=== PATIENT | male | born 1960 | race Caucasian/White ===

== ENCOUNTER 2019-11-22 03:15 | Inpatient (IN) | payer MEDICAID ==
[~2019-11-22] VITALS: Ht 157.5 cm; Wt 99.8 kg
--- NOTE | ~2019-11-22 | EMS ---
[place] [address] EMS Patient Care Report Name: MIKAEL WHITAKER Room: [facility]#: [id number] Admission: Attend Phys: Discharge: Date of : 58 Report #: [id number] THIS REPORT FOR: //name// Report Transmitted: 11/22/2019 03:42 EMS Care Summary [facility] [employer] [facility] Incident [id number] @ 11/22/2019 02:34 Incident Location [address] [place] [address] Patient MIKAEL WHITAKER Male, 58 Years 1960 Patient Address [address] [place] [address] Patient History Asthma,Seizures, Patient Allergies No known allergies, Patient Medications Metoprolol, Carvedilol, Atorvastatin, Clopidogrel, Nitroglycerin, Albuterol, Lisinopril, Quetiapine, Aspirin, Chief Complaint SOB Disposition Transported No Lights/Gallion Dispatch Reason Breathing Problem Transported To [facility] Narrative Dispatched for 58y/o male chest pain. Upon arrival pt. was lying on the floor, anxious, and speaking 1-2 words at a time. Pt. would not answer questions and would not voice a complaint. VS were obtained, O2 was administered, and 12 [place] [address] EMS Patient Care Report Name: MIKAEL WHITAKER Room: [facility]#: [id number] Admission: Attend Phys: Discharge: Date of : 58 Report #: [id number] EKG showed sinus rhythm. Pt. would not give history or complaint and family was poor historian. Pt. med list was found and showed Albuterol for asthma. Pt. was then moved to ambulance and anxiety decreased. Better assessment was done and breath sounds were wheezes throughout. Duoneb was administered with some improvement and then Albuterol was administered with continued improvement. Upon arrival to hospital pt. was cooperative and speaking more complete sentences. Pt. was transported to [place] for emergency and respiratory services. Initial Vitals @03:10P: 76,R: 24,BP: 130/70, @02:55P: 80,R: 24,BP: 130/74,SpO2: 100, @02:41P: 80,R: 30,BP: 144/80,GCS: 15,Temp: 97.9F,Glucose: 107,SpO2: 100,Revised Trauma: 11,OH Suspected: false Assessments @02:42MENTAL:Person Oriented,Time Oriented,Place Oriented,Event Oriented,SKIN:HEENT:Head/Face: No Abnormalities,Neck/Airway: No Abnormalities,LUNG SOUNDS:General: No Abnormalities,ABDOMEN:General: No Abnormalities,PELVIS//GI:EXTREMITIES:Left Arm: No Abnormalities,Right Arm: No Abnormalities,Left Leg: No Abnormalities,Right Leg: No Abnormalities,PULSE:Radial: 2+ Normal,NEURO:No Abnormalities, Impression Respiratory disorder Procedures @02:45Oxygen FlowRate: 4 Device: Nasal Cannula (NC) Response: UnchangedSucceeded@02:50Oxygen FlowRate: 8 Device: Nebulizer Response: ImprovedSucceeded@02:54Saline Lock 10cc (20 ga) Site: Hand-LeftResponse: UnchangedSucceeded@03:00Albuterol - 2.5 Milligrams (mg) - NebulizedResponse: Improved@02:50Duoneb - 3 Milligrams (mg) - Non-Rebreather MaskResponse: Improved Timeline 02:30,Call Received 02:34,Dispatched 02:34,En Route 02:36,Initial Responder On Scene 02:36,On Scene 02:40,At Patient 02:41,BP: 144/80 M,PULSE: 80,RR: 30 R,SPO2: 100 Ox,ETCO2: ,B,PAIN: ,GCS: 15, 02:45,Oxygen FlowRate: 4 Device: Nasal Cannula (NC) Response: UnchangedSucceeded, 02:49,[place] [address] EMS Patient Care Report Name: MIKAEL WHITAKER Room: [facility].#: [id number] Admission: Attend Phys: Discharge: Date of : 58 Report #: [id number] 02:50,Duoneb - 3 Milligrams (mg) - Non-Rebreather Mask,Response: Improved 02:50,Oxygen FlowRate: 8 Device: Nebulizer Response: ImprovedSucceeded, 02:54,Saline Lock 10cc 20 ga Site: Hand-Left,Response: UnchangedSucceeded, 02:55,BP: 130/74 M,PULSE: 80,RR: 24 R,SPO2: 100 Ox,ETCO2: ,BG: ,PAIN: ,GCS: , 03:00,Albuterol - 2.5 Milligrams (mg) - Nebulized,Response: Improved 03:10,BP: 130/70 M,PULSE: 76,RR: 24 R,SPO2: Ox,ETCO2: ,BG: ,PAIN: ,GCS: , 03:11,At Destination 03:15,Transfer Patient 03:44,Call Closed 03:44,In District Disclaimer v1.1 Copyright 2020 [employer] This EMS Care Summary contains data elements from the applicable legal record (which may be displayed differently). It is designed to provide pertinent information for the following purposes: continuity of care, clinical quality, and state data reporting. The complete legal record is available to ED staff and administrators of the receiving hospital in [employer] Patient Tracker. All data is provided "as is."
[2019-11-22 03:19] VITALS: BP 157/99
[2019-11-22] MEDS ORDERED: ASPIRIN (03:34)
[2019-11-22] MEDS ORDERED: ALBUTEROL (03:34)
[2019-11-22] MEDS ORDERED: ATORVASTATIN (03:35)
[2019-11-22] MEDS ORDERED: CLOPIDOGREL (03:36)
[2019-11-22] MEDS ORDERED: CARVEDILOL (03:36)
[2019-11-22] MEDS ORDERED: METOPROLOL (03:37)
[2019-11-22] MEDS ORDERED: LISINOPRIL (03:37)
[2019-11-22] MEDS ORDERED: QUETIAPINE (03:38)
[2019-11-22] MEDS ORDERED: NITROGLYCERIN (03:38)
[2019-11-22 03:55] LABS: ABSOLUTE BASOPHILS 0.1 thou/uL (0.0-0.2); ABSOLUTE EOSINOPHILS 0.5 thou/uL (0.0-0.7); ABSOLUTE LYMPHOCYTES 5.8 thou/uL (0.8-5.3); ABSOLUTE MONOCYTES 1.3 thou/uL (0.0-1.2); ABSOLUTE NEUTROPHILS 4.3 thou/uL (1.6-8.1); BASOPHILS 0.7 %; EOSINOPHILS 4.3 %; HEMOGLOBIN 12.6 gm/dL (14.0-18.0); LYMPHOCYTES 48.2 %; MCH 29.2 pg (26.0-34.0); MCHC 33.2 g/dL (28.0-37.0); MONOCYTES 10.7 %; NUCLEATED RBCS 0 /100WBC; PLATELET COUNT* 350 thou/uL (150-400); POLYS 36.1 %; RBC 4.31 mil/uL (4.50-6.00); RDW-CV 14.1 % (10.5-14.5)
[2019-11-22 04:06] LABS: CALCIUM 8.8 mg/dL (8.5-10.1); CREATININE 1.4 mg/dL (0.6-1.3); POTASSIUM 3.7 mmol/L (3.5-5.1)
[2019-11-22 04:18] LABS: ALBUMIN 3.6 g/dL (3.4-5.0); TOTAL BILIRUBIN 0.2 mg/dL (<0.1-1.0)
[2019-11-22 08:00] VITALS: BP 123/56
[2019-11-22] MEDS ORDERED: CARVEDILOL25 MG PO (11:11)
[2019-11-22] MEDS ORDERED: PLAVIX 75 MG TA75 M1 PO (11:56)
[2019-11-22] MEDS ORDERED: CARVEDILOL12.5 MG PO ×2 (11:56→12:13)
[2019-11-22] MEDS ORDERED: PLAVIX 75 MG TA75 MG PO (12:14)
[2019-11-22] MEDS ORDERED: SEROQUEL 25 MG25 MG PO (12:15)
[2019-11-22] MEDS ORDERED: LIPITOR80 MG PO (12:16)
[2019-11-22] MEDS ORDERED: LISINOPRIL-HCT1 EAC1 PO (12:16)
[2019-11-22] MEDS ORDERED: BIDIL TABLET1 EACH PO (12:17)
[2019-11-22 12:30] VITALS: BP 110/58
[2019-11-22 14:31] LABS: ALBUMIN 3.8 g/dL (3.4-5.0); CALCIUM 9.1 mg/dL (8.5-10.1); CREATININE 1.3 mg/dL (0.6-1.3); TOTAL BILIRUBIN 0.2 mg/dL (<0.1-1.0); TOTAL PROTEIN 7.6 g/dL (6.4-8.2)
[2019-11-22 15:24] LABS: BE -4.7 mmol/L (-2 to +3); PCO2 33.9 mmHg (35.0-45.0); PO2 84.3 mmHg (75.0-100.0)
[2019-11-22 15:55] VITALS: BP 100/48
[2019-11-22 16:00] VITALS: BP 137/71
--- NOTE | 2019-11-22 17:48 | EKG ---
[place] [address] ELECTROCARDIOGRAM REPORT Name: MIKAEL WHITAKER Room: [address] ADM IN .R.#: [id number] Admission: 11/22/19 Attend Phys: Zoraida Pedraza, Discharge: Date of : 58 Date of Service: 11/22/19 0321 Report #: [id number] THIS REPORT FOR: //name// [facility] ED Test Date: 2019-11-22 Test Time: 03:21:20 Pat Name: MIKAEL WHITAKER Department: Room: [facility] Gender: M Data Assistant: VALERIA : 1960 Requested By: Omi Esposito Order Number: [id number] MD: Benson Valero Measurements Intervals [place] Rate: 73 P: 53 DE: 149 QRS: 52 QRSD: 106 T: 107 QT: 388 QTc: 428 Interpretive Statements Sinus rhythm Nonspecific repol abnormality, lateral leads No previous ECG available for comparison Electronically Signed On 11-22-2019 17:48:24 CDT by Benson Valero [email or web address] <ELECTRONICALLY SIGNED> By: Benson Valero MD, FACC 11/22/19 1748 032 032 Benson Valero MD, FACC /EPI
--- NOTE | 2019-11-22 17:49 | EKG ---
[place] [address] ELECTROCARDIOGRAM REPORT Name: JULIANNEMIKAEL R Room: [address] ADM IN .R.#: [id number] Admission: 11/22/19 Attend Phys: Zoraida Pedraza, Discharge: Date of : 58 Date of Service: 11/22/19 0747 Report #: [id number] THIS REPORT FOR: //name// [facility] ED Test Date: 2019-11-22 Test Time: 07:47:13 Pat Name: MIKAEL WHITAKER Department: Room: [facility] Gender: M Chief Internal Auditor: JOHN : 1960 Requested By: Omi Esposito Order Number: [id number] MD: Benson Valero Measurements Intervals [place] Rate: 97 P: 66 [place]: 170 QRS: 40 QRSD: 104 T: 72 QT: 373 QTc: 474 Interpretive Statements Sinus rhythm Borderline T wave abnormalities Artifact in lead(s) II,III,aVF,V3,V4 and baseline wander in lead(s) I,V2,V3,V4,V5,V6 Compared to ECG 11/22/2019 03:21:20 T-wave abnormality now present Early repolarization no longer present Electronically Signed On 11-22-2019 17:48:45 CDT by Benson Valero [email or web address] <ELECTRONICALLY SIGNED> By: Benson Valero MD, FACC 11/22/19 1748 6 6 Benson Valero MD, FAC /EPI
--- NOTE | 2019-11-22 17:49 | EKG ---
[place] [address] ELECTROCARDIOGRAM REPORT Name: JULIANNEMIKAEL R Room: [address] ADM IN ..#: [id number] Admission: 11/22/19 Attend Phys: Zoraida Pedraza, Discharge: Date of : 58 Date of Service: 11/22/19 0751 Report #: [id number] THIS REPORT FOR: //name// [facility] ED Test Date: 2019-11-22 Test Time: 07:51:42 Pat Name: MIKAEL WHITAKER Department: Room: [facility] Gender: M Melter Supervisor Oxygen Furnace: JOHN : 1960 Requested By: Alberto Callaway Order Number: [id number] MD: Benson Valero Measurements Intervals [place] Rate: 96 P: 62 SC: 183 QRS: 36 QRSD: 104 T: 122 QT: 375 QTc: 474 Interpretive Statements Sinus rhythm Borderline repolarization abnormality Artifact in lead(s) II,III,aVR,aVL,aVF,V4,V6 and baseline wander in lead(s) V6 Compared to ECG 11/22/2019 07:47:13 T-wave abnormality no longer present Electronically Signed On 11-22-2019 17:48:49 CDT by Benson Valero [email or web address] <ELECTRONICALLY SIGNED> By: Benson Valero MD, FACC 11/22/19 1748 0 075 Benson Valero MD, FACC /EPI
[2019-11-22 20:00] VITALS: BP 191/105
[2019-11-23 00:12] VITALS: BP 155/83
[2019-11-23 01:00] VITALS: BP 158/83
[2019-11-23 07:58] VITALS: BP 129/92
[2019-11-23 12:00] VITALS: BP 116/75
[2019-11-23 16:00] VITALS: BP 134/75
[2019-11-23 20:00] VITALS: BP 123/64
[2019-11-24] VITALS: BP 125/89
[2019-11-24 04:00] VITALS: BP 144/64
[2019-11-24 04:13] LABS: ABSOLUTE LYMPHOCYTES 4.7 thou/uL (0.8-5.3); ABSOLUTE MONOCYTES 1.2 thou/uL (0.0-1.2); ABSOLUTE NEUTROPHILS 10.2 thou/uL (1.6-8.1); BASOPHILS 0.2 %; EOSINOPHILS 0.1 %; HEMATOCRIT 37.5 % (42.0-52.0); HEMOGLOBIN 12.2 gm/dL (14.0-18.0); LYMPHOCYTES 29.1 %; MCH 29.2 pg (26.0-34.0); MCHC 32.5 g/dL (28.0-37.0); MCV 89.7 fL (80.0-100.0); MONOCYTES 7.3 %; NUCLEATED RBCS 0 /100WBC; PLATELET COUNT* 358 thou/uL (150-400); POLYS 63.3 %; RBC 4.18 mil/uL (4.50-6.00); RDW-CV 14.5 % (10.5-14.5); WBC 16.1 thou/uL (4.0-11.0)
[2019-11-24 04:38] LABS: ALBUMIN 3.5 g/dL (3.4-5.0); CALCIUM 8.8 mg/dL (8.5-10.1); CREATININE 1.2 mg/dL (0.6-1.3); POTASSIUM 4.1 mmol/L (3.5-5.1); TOTAL BILIRUBIN 0.2 mg/dL (<0.1-1.0); TOTAL PROTEIN 7.1 g/dL (6.4-8.2)
[2019-11-24 08:00] VITALS: BP 158/93
[2019-11-24] MEDS ORDERED: LEVOFLOXACIN500 MG PO (09:28)
[2019-11-24] MEDS ORDERED: PREDNISONE 10 M10 MG PO (09:28)
[2019-11-24 12:17] VITALS: BP 144/64
[2019-11-24 14:51] VITALS: BP 144/64
== END 2019-11-24 14:52 | disposition home or self-care (01) | DRG 177 ==
LOC: M.ERS 03:15 → M.TBA-ER 04:46 → M.3W 16:00
PROVIDERS: Emergency Medicine Emergency Medical Services; Internal Medicine; ADMIT Internal Medicine; ATTEND Internal Medicine
DX: J15.6 Pneumonia due to other Gram-negative bacteria (principal); J96.21 Acute and chronic respiratory failure with hypoxia; J44.0 Chronic obstructive pulmonary disease with (acute) lower respiratory infection; F12.90 Cannabis use, unspecified, uncomplicated; J45.909 Unspecified asthma, uncomplicated; J20.9 Acute bronchitis, unspecified; D64.9 Anemia, unspecified; I10 Essential (primary) hypertension; Z20.828 Contact with and (suspected) exposure to other viral communicable diseases; Z88.0 Allergy status to penicillin; Z91.041 Radiographic dye allergy status; Z95.5 Presence of coronary angioplasty implant and graft; Z82.49 Family history of ischemic heart disease and other diseases of the circulatory system; Z79.899 Other long term (current) drug therapy

== ENCOUNTER 2020-01-20 20:32 | Inpatient (IN) | payer MEDICAID ==
[~2020-01-20] VITALS: Ht 157.5 cm; Wt 76.2 kg
--- NOTE | ~2020-01-20 | CON ---
[address] [address] CONSULTATION Name: MIKAEL WHITAKER Gricel Room: [place] [address] ADM IN Lucie.Gricel.#: [id number] Admission: 01/20/20 Attend Phys: Lucie Pitt Discharge: Date of : 58 Report #: [id number] THIS REPORT FOR: cc: Crys Daniels Ahmad W. DO ~ Ryan Cee MD [facility] CARDIOLOGY CONSULTATION HISTORY OF PRESENT ILLNESS: I was asked by the ER doctor and Dr. Flaherty of the hospitalist service to see this 59-year-old white male in cardiology consultation for evaluation and treatment of chest pain. This man has a history of coronary artery disease. He has had 3 stents. His last one was in March and was told there was residual disease. His stents were done in [place], [place] and I believe the last one was in [place]. He does not have a airplane mechanic here in [place]. He apparently sees Dr. Crys Daniels for his primary care. This man had the onset of chest pain last night was around 1900. He said the pain was like his previous chest pain. It was an 8 or 9 on a scale of 10. He describes it as being on the left side of his chest. It was a sharp, knife-like pain. He did have pain in his right forearm with it. He had associated nausea and vomiting and shortness of breath. The pain lasted about an hour altogether. He did take a nitroglycerin initially, which relieved the pain, but when the pain went back, he decided to come to the Emergency Room. The pain was constant after the resumed following the initial nitroglycerin. So in additionally his past medical history includes besides his coronary heart disease and coronary stents, hypertension and hypercholesterolemia. He apparently does not have diabetes. He does smoke, apparently. MEDICATIONS: Include p.r.n. nitroglycerin, metoprolol 25 mg daily that is Toprol-XL, he takes an albuterol inhaler p.r.n. He is on carvedilol 12.5 mg b.i.d., Plavix 75 mg daily. He is supposed to be taking aspirin, but he has not been taking it. He takes quinapril 25 mg 3 times a day, atorvastatin 80 mg daily and BiDil 30 mg tablets b.i.d. He tells me he has not ever been told he has heart failure. ALLERGIES: HE IS ALLERGIC TO CONTRAST DYE AND TO PENICILLIN. LABORATORY DATA: His troponins have been negative. I believe he only had 1 troponin. His BNP was 43. Urine drug screen was positive for opiates. Chest x-ray was unremarkable. His EKG showed normal sinus rhythm, heart rate was 89. There is a probable old anteroseptal GA versus counterclockwise rotation. There were minimal nonspecific ST changes and there was probable LAE. SOCIAL HISTORY: Does not drink. He does smoke, does not use illegal drugs. REVIEW OF SYSTEMS: Essentially as per the past medical history some [address] [place] [address] CONSULTATION Name: MIKAEL WHITAKER Gricel Room: [facility] IN [facility]#: [id number] Admission: 01/20/20 Attend Phys: Lucie Pitt Discharge: Date of : 58 Report #: [id number] different complaints in 14 different system categories were reviewed. Please see review of systems form for details and negative in review of systems. FAMILY HISTORY: Unremarkable. PHYSICAL EXAMINATION: GENERAL: He presents as well-developed, well-nourished white male in no acute distress. VITAL SIGNS: His pulse was 80 and regular, blood pressure is 140/85, respirations were 20 and regular, O2 sat was 97, temperature is 36.2. HEENT: His head was atraumatic. Eyes clear. NECK: Supple. There is no jugular venous distention or hepatojugular reflux. Thyroid is not enlarged. There is no adenopathy. SKIN: Warm and dry. Mucous membranes are moist. LUNGS: Clear to auscultation and percussion. HEART: Revealed normal first and second heart sound. There is soft S4. There is no S3. There are no murmurs, rubs, thrills, heaves or gallops. PMI is not displaced. ABDOMEN: Soft, flat and nontender. No palpable masses, no organomegaly. EXTREMITIES: Reveal no cyanosis, clubbing or edema. NEUROLOGIC: The patient mentated normally, talked normally, and moved all extremities normally. IMPRESSION: 1. Chest pain, probably an acute coronary syndrome. 2. Coronary artery disease. 3. Status post coronary stents. 4. Essential hypertension. 5. Hypercholesterolemia. 6. Smoking. RECOMMENDATION: I recommend that he have cardiac catheterization and coronary angiography tomorrow. Additionally, he should have an echo. Thank you very much for asking me to see this patient. I would aggressively treat him with beta blockers and nitrates as well as aspirin and Plavix. If there are any questions, please feel free to contact me. By: [id number]. Ramana Cee MD, FACC /nt
[~2020-01-20 20:32] MED LIST: ALBUTEROL; ASPIRIN; ATORVASTATIN; BIDIL TABLET1 EACH PO; CARVEDILOL; CARVEDILOL12.5 MG PO; CARVEDILOL25 MG PO; CLOPIDOGREL; LEVOFLOXACIN500 MG PO; LIPITOR80 MG PO; LISINOPRIL; LISINOPRIL-HCT1 EAC1 PO; METOPROLOL; NITROGLYCERIN; PLAVIX 75 MG TA75 M1 PO; PLAVIX 75 MG TA75 MG PO; PREDNISONE 10 M10 MG PO; QUETIAPINE; SEROQUEL 25 MG25 MG PO
[2020-01-20 20:34] VITALS: BP 154/89
[2020-01-20] MEDS ORDERED: NITROSTAT0.4 M1 SUBLING (20:44)
[2020-01-20] MEDS ORDERED: TOPROL XL25 MG PO (20:45)
[2020-01-20] MEDS ORDERED: PROAIR HFA8.5 GM INH (20:46)
[2020-01-20 21:17] LABS: ABSOLUTE BASOPHILS 0.1 thou/uL (0.0-0.2); ABSOLUTE EOSINOPHILS 0.2 thou/uL (0.0-0.7); ABSOLUTE LYMPHOCYTES 3.3 thou/uL (0.8-5.3); ABSOLUTE MONOCYTES 0.9 thou/uL (0.0-1.2); ABSOLUTE NEUTROPHILS 8.5 thou/uL (1.6-8.1); BASOPHILS 0.8 %; EOSINOPHILS 1.4 %; HEMATOCRIT 42.7 % (42.0-52.0); HEMOGLOBIN 14.3 gm/dL (14.0-18.0); LYMPHOCYTES 25.4 %; MCH 29.7 pg (26.0-34.0); MCHC 33.4 g/dL (28.0-37.0); MCV 88.8 fL (80.0-100.0); MONOCYTES 6.6 %; NUCLEATED RBCS 0 /100WBC; PLATELET COUNT* 343 thou/uL (150-400); POLYS 65.8 %; RBC 4.81 mil/uL (4.50-6.00); RDW-CV 15.3 % (10.5-14.5)
[2020-01-20 21:26] LABS: CALCIUM 9.5 mg/dL (8.5-10.1); CREATININE 1.3 mg/dL (0.6-1.3); POTASSIUM 3.5 mmol/L (3.5-5.1)
[2020-01-20 21:28] LABS: APTT 23.1 Seconds (25.0-31.3); PROTIME 10.3 Seconds (9.20-11.50)
[2020-01-20 21:38] LABS: TOTAL BILIRUBIN 0.5 mg/dL (<0.1-1.0); TOTAL PROTEIN 7.6 g/dL (6.4-8.2)
[2020-01-20 22:28] LABS: URINE BILIRUBIN NEGATIVE (Negative); URINE BLOOD NEGATIVE (Negative); URINE CLARITY CLEAR; URINE COLOR YELLOW; URINE GLUCOSE-RANDOM 1+ (Negative); URINE KETONES 1+ (Negative); URINE LEUKOCYTES-REFLEX NEGATIVE (Negative); URINE NITRITE-REFLEX NEGATIVE (Negative); URINE PROTEIN NEGATIVE (Negative); URINE SPECIFIC GRAVITY >= 1.030 (1.005-1.030); URINE UROBILINOGEN 0.2 E.U./dl (0.2-1.0)
[2020-01-20 22:37] LABS: AMP/METHAMP Negative (Negative); BARBITURATES Negative (Negative); BENZODIAZEPINES Negative (Negative); COCAINE Negative (Negative); METHADONE Negative (Negative); OPIATES POSITIVE (Negative); PCP Negative (Negative); THC Negative (Negative)
[2020-01-21] VITALS (8 sets, daily range): BP systolic 102–152; BP diastolic 51–90
--- NOTE | 2020-01-21 14:07 | EKG ---
[place] [address] ELECTROCARDIOGRAM REPORT Name: MIKAEL WHITAKER Room: [place] [address] ADM IN [facility].#: [id number] Admission: 01/20/20 Attend Phys: Daniela Flaherty Discharge: Date of : 58 Date of Service: 01/20/202035 Report #: [id number] THIS REPORT FOR: //name// [facility] ED Test Date: 2020-01-20 Test Time: 20:36:07 Pat Name: MIKAEL WHITAKER Department: Room: [facility] Gender: M Hide Tanner: JOHN : 1960 Requested By: Debra Rodgers Order Number: [id number] MD: Ramana Cee Measurements Intervals [place] Rate: 89 P: 70 [place]: 152 QRS: 44 QRSD: 106 T: 89 QT: 377 QTc: 459 Interpretive Statements Sinus rhythm Probable left atrial enlargement Minimal ST depression, lateral leads Compared to ECG 11/22/2019 07:51:42 ST (T wave) deviation now present Electronically Signed On 01-21-2020 14:07:43 PINION SORTER by Ramana Cee [email or web address] <ELECTRONICALLY SIGNED> By: Ryan Cee MD, FAC 01/21/20 1407 35 35 Ryan Cee MD, FAC /EPI
[2020-01-21] MEDS ORDERED: PREDNISONE 5 MG5 M1 PO (21:06)
[2020-01-21] MEDS ORDERED: LISINOPRIL20 MG PO (21:06)
[2020-01-21] MEDS ORDERED: ASA81BEC PO (21:06)
[2020-01-22] VITALS (13 sets, daily range): BP systolic 106–159; BP diastolic 62–99
[2020-01-22 08:58] LABS: CHOLESTEROL 190 mg/dL (<200); HDL CHOLESTEROL 40 mg/dL (>40); LDL CHOLESTEROL 131 mg/dL (<100); SERUM ASSESSMENT Clear; TC:HDL 4.8 Ratio (Not establshd); TRIGLYCERIDE 98 mg/dL (<150); VLDL 20 mg/dL (<40)
--- NOTE | 2020-01-22 15:17 | EKG ---
[place] [address] ELECTROCARDIOGRAM REPORT Name: MIKAEL WHITAKER Room: [address] ADM IN M.R.#: [id number] Admission: 01/20/20 Attend Phys: Daniela Flaherty Discharge: Date of : 58 Date of Service: 01/22/20 1345 Report #: [id number] THIS REPORT FOR: //name// [facility] Test Date: 2020-01-22 Test Time: 13:45:46 Pat Name: MIKAEL WHITAKER Department: Room: [address] Gender: M Chief Engineering Division: : 1960 Requested By: Jeronimo Powell Order Number: [id number] Todd MD: Jeronimo Powell Measurements Intervals [place] Rate: 76 P: 69 [place]: 164 QRS: 16 QRSD: 161 T: 121 QT: 457 QTc: 514 Interpretive Statements Sinus rhythm Left bundle branch block Compared to ECG 01/20/2020 20:36:07 Left bundle-branch block now present ST (T wave) deviation no longer present Electronically Signed On 01-22-2020 15:17:24 CERTIFIED NURSE by Jeronimo Powell [email or web address] <ELECTRONICALLY SIGNED> By: Jeronimo Powell MD, [facility] 01/22/20 1517 1345 1345 Jeronimo Powell MD, [facility] /EPI
--- NOTE | 2020-01-22 15:39 | CARD ---
[address] [address] CARDIAC CATH REPORT Name: JULIANNEMIKAEL R Room: [address] IN [facility]#: [id number] Admission: 01/20/20 Attend Phys: Lucie Pitt Discharge: Date of : 58 Report #: [id number] THIS REPORT FOR: cc: Crys Daniels Ahmad W. DO ~ Jeronimo Powell MD MERGED WITH [facility] APPROVED REPORT Study performed: 01/22/2020 11:02:20 Patient Details Patient Status: In-Patient Room #: The patient is a 59 year-old male Event Personnel Jeronimo Powell Fan Engine Engineer, Varsha Aburto RN, Michele Ross SENIOR CONTRACTS MANAGER Monitor, Bernardino Michelle SENIOR CONTRACTS MANAGER Scrub, Jeronimo Powell Marine Animal Trainer, Fina Werner Monitor Procedures Performed Art Access - L femoral artery Left Heart Cath w/or w/o Coronaries CHAS Place w/wo Plasty Single LAD Hemostasis w/ Angioseal Indication Unstable angina Risk Factors Obesity, Hypercholesterolemia, Hypertension Previous Procedures/Diagnoses Previous PCI Admission/Lab Medications/Medications given during procedure Solumedrol IV 125 mg, 0.9% Sodium Chloride IV 100 ml per hr, Oxygen Nasal cannula 2 l per min, Midazolam (Versed) IV 1 mg, Fentanyl IV 25 mcg, Lidocaine Subcut 14 ml, Nitroglycerin IC 200 mcg, Angiomax IV 11 ml, Angiomax Drip IV 26.8 ml per hr, Angiomax IV 3 ml, Plavix PO 600 mg, Aspirin PO 182 mg Procedure Narrative The patient was brought urgently to the Cardiac Catheterization Laboratory and was prepped and draped in a [place] [address] CARDIAC CATH REPORT Name: MIKAEL WHITAKER Room: [address]#: [id number] Admission: 01/20/20 Attend Phys: Lucie Pitt Discharge: Date of : 58 Report #: [id number] femoral was infiltrated with 2% Lidocaine subcutaneous anesthesia. A Caruthers 6 FR sheath was inserted into the left femoral artery. Coronary angiography was performed using coronary diagnostic catheters. The right coronary system was accessed and visualized with a Diagnostic 6 Fr JR 4 catheter. The left coronary system was accessed and visualized with a Diagnostic 6 Fr JL 4 catheter. The left ventricle was accessed and visualized with a Diagnostic 6 Fr Pigtail catheter. Left ventricular/Aortic Valve gradient assessed via catheter pullback. Left ventriculogram was performed in HOANG projection. Pre-demployment femoral angiogram was performed . Closure device was deployed with a Fr Angioseal STS 6Fr. The patient tolerated the procedure well and there were no complications associated with the procedure. There was no hematoma. Intraoperative Conscious Sedation Sedation start time: 11:40 Case end Time: 12:28 Fentanyl 25 mcg Versed 1 mg Fluoro Time: 11.2 minutes Dose: DAP 136541 cGycm2 1751 mGy Contrast Type and Amount: Visipaque 250 ml Coronary Angiography The patient's coronary anatomy is left dominant. Diagnostic Cath Left Main 0% narrowing LAD 30% proximal LAD narrowing with 80% focal mid LAD in-stent restenosis and 80% distal LAD narrowing Circumflex Dominant vessel with 30% mid vessel narrowing Right Coronary Small nondominant vessel with 0% narrowing Left Ventriculography The left ventricle is normal in size with normal contractility. The left ventricular ejection fraction is estimated to be 60%. Left ventricular wall motion abnormalities are not present. There is no mitral insufficiency. Hemodynamics The aortic pressure is 157/75 mmHg with a mean of 107 mmHg. The left ventricular pressure is 157/2 mmHg with a mean of mmHg. The left ventricular end diastolic pressure is 14 mmHg. There was no gradient across the aortic [place] [address] CARDIAC CATH REPORT Name: JULIANNEMIKAEL Gricel Room: [address]#: [id number] Admission: 01/20/20 Attend Phys: Lucie Pitt Discharge: Date of : 58 Report #: [id number] PCI Technique Lesion Anticoagulation was achieved with Angiomax Drip. Patient was preloaded with Angiomax IV 11 ml. Percutaneous coronary intervention was performed on the mid left anterior descending artery segment. The lesion stenosis prior to intervention was 80% with JUAN CARLOS 3 flow. A 6FR XB 3.0 100CM Guide Catheter was used to engage the left ostium. A IG: ProwaterFlex 180CM Interventional Guidewire was used to cross the lesion. BALLOON DILATION A Balloon catheter NC Trek RX 2.5 X 12 was inserted and inflated up to 16.00atm for 13seconds. Additional Inflation: 18.00atm for 10seconds. STENT DEPLOYMENT A drug-eluting stent [place] RX Stent 2.5X12mm was inserted and inflated up to 16.00atm for 12seconds. Additional Inflation: 17.00atm for 5seconds. Final angiography reveals 0 % stenosis with JUAN CARLOS 3 flow. PCI Technique Lesion 2 Percutaneous Coronary Intervention was performed on the distal left anterior descending artery segment. Patient was preloaded with Angiomax IV 11 ml. The lesion stenosis prior to intervention was 80% with JUAN CARLOS 3 flow. A 6FR XB 3.0 100CM Guide Catheter was used to engage the left ostium. A IG: ProwaterFlex 180CM Interventional Guidewire was used to cross the lesion. Stent Deployment A drug-eluting stent [place] RX Stent 2.0X8mm was inserted and inflated up to 12atm for 13seconds. Additional Inflation: 14atm for 7seconds. Additional Inflation: 16atm for 9seconds. Final angiography reveals 10 % stenosis with JUAN CARLOS 3 flow. Conclusion 1. Significant coronary artery disease characterized by the following: A 30% proximal LAD narrowing with 80% focal mid LAD in-stent restenosis and 80% distal LAD stenosis B 30% narrowing in the midportion of the dominant circumflex [address] [address] CARDIAC CATH REPORT Name: MIKAEL WHITAKER Room: [address] IN M.R.#: [id number] Admission: 12/12/20 Attend Phys: Lucie Pitt Discharge: Date of : 58 Report #: [id number] C normal nondominant right coronary artery 2. Normal left ventricular systolic function, estimated ejection fraction being 60% 3. Mild systemic systolic hypertension 4. Successful PCI with deployment of drug-eluting stents at the sites of 80% mid and distal LAD stenosis with 0 and 10% residual narrowings and JUAN CARLOS-3 flow to the distal vessel Recommendations Daily ASA with Plavix for at least one year Cardiac Risk Reduction Program Medications Administered Aspirin (any) Clopidogrel Diagnostic Cath Approved by: Jeronimo Powell MD Date/Time: 01/22/2020 15:36:28 <ELECTRONICALLY SIGNED> By: Jeronimo Powell MD, FACC 01/22/20 1539 1539 1539Jeronimo Powell MD, FACC /INF
[2020-01-23] VITALS (7 sets, daily range): BP systolic 98–159; BP diastolic 55–101
[2020-01-23 02:06] LABS: GLYCOHEMOGLOBIN (HGB A1C) 6.5 % (4.8-5.6)
[2020-01-23 04:29] LABS: HEMATOCRIT 38.1 % (42.0-52.0); MCHC 32.1 g/dL (28.0-37.0); MCV 90.3 fL (80.0-100.0); MPV 8.3 fl. (7.2-11.1); RBC 4.22 mil/uL (4.50-6.00); RDW-CV 15.1 % (10.5-14.5); WBC 17.8 thou/uL (4.0-11.0)
[2020-01-23 04:57] LABS: HEMOGLOBIN 12.2 gm/dL (14.0-18.0)
[2020-01-23 05:01] LABS: ALBUMIN 3.2 g/dL (3.4-5.0); ALKALINE PHOSPHATASE 77 U/L (46-116); ANION GAP 9 mmol/L (7-16); BUN 21 mg/dL (7-18); CALCIUM 8.9 mg/dL (8.5-10.1); CHLORIDE 105 mmol/L (98-107); CO2 25 mmol/L (21-32); CREATININE 1.3 mg/dL (0.6-1.3); GLUCOSE 152 mg/dL (70-99); POTASSIUM 4.2 mmol/L (3.5-5.1); SGOT 9 U/L (15-37); SGPT 26 U/L (30-65); SODIUM 139 mmol/L (136-145); TOTAL BILIRUBIN 0.2 mg/dL (<0.1-1.0); TOTAL PROTEIN 6.5 g/dL (6.4-8.2); TROPONIN-I LEVEL <0.06 ng/mL (<0.06)
[2020-01-23] MEDS ORDERED: GLIPIZIDE 10 MG10 MG PO (10:54)
[2020-01-23] MEDS ORDERED: METFORMIN HCL500 M3 PO (10:54)
--- NOTE | 2020-01-23 12:25 | EKG ---
[place] [address] ELECTROCARDIOGRAM REPORT Name: MIKAEL WHITAKER Room: [address] ADM IN M.R.#: [id number] Admission: 01/22/20 Attend Phys: Daniela Flaherty Discharge: Date of : 58 Date of Service: 01/23/20 0911 Report #: [id number] THIS REPORT FOR: //name// [facility] Test Date: 2020-01-23 Test Time: 09:11:48 Pat Name: MIKAEL WHITAKER Department: Room: [address] Gender: M Sugar Presser: : 1960 Requested By: Jeronimo Powell Order Number: [id number] Todd MD: Jeronimo Powell Measurements Intervals [place] Rate: 64 P: 70 [place]: 150 QRS: 13 QRSD: 168 T: 130 QT: 465 QTc: 480 Interpretive Statements Sinus rhythm Left bundle branch block Compared to ECG 01/22/2020 13:45:46 No significant changes Electronically Signed On 01-23-2020 12:25:41 SUSTAINABILITY COMMUNICATOR by Jeronimo Powell [email or web address] <ELECTRONICALLY SIGNED> By: Jeronimo Powell MD, [facility] 01/23/20 1225 0911 Jeronimo Powell MD, [facility] /EPI
== END 2020-01-23 12:50 | disposition home or self-care (01) | DRG 246 ==
LOC: M.ERS 20:32 → M.TBA-ER 22:51 → M.2W 22:51
PROVIDERS: Internal Medicine; Personal Emergency Response Attendant; Registered Nurse; ADMIT Internal Medicine; ATTEND Internal Medicine
PROC: 027035Z Dilation of Coronary Artery, One Artery with Two Drug-eluting Intraluminal Devices, Percutaneous Approach (ICD-10-PCS; principal; 2020-01-22)
PROC: B41GYZZ Fluoroscopy of Left Lower Extremity Arteries using Other Contrast (ICD-10-PCS; principal; 2020-01-22)
PROC: B211YZZ Fluoroscopy of Multiple Coronary Arteries using Other Contrast (ICD-10-PCS; principal; 2020-01-22)
PROC: B215YZZ Fluoroscopy of Left Heart using Other Contrast (ICD-10-PCS; principal; 2020-01-22)
PROC: 4A023N7 Measurement of Cardiac Sampling and Pressure, Left Heart, Percutaneous Approach (ICD-10-PCS; principal; 2020-01-22)
DX: I25.118 Atherosclerotic heart disease of native coronary artery with other forms of angina pectoris (principal); K85.90 Acute pancreatitis without necrosis or infection, unspecified; T82.855A Stenosis of coronary artery stent, initial encounter; E78.00 Pure hypercholesterolemia, unspecified; F17.200 Nicotine dependence, unspecified, uncomplicated; I10 Essential (primary) hypertension; G47.33 Obstructive sleep apnea (adult) (pediatric); E11.9 Type 2 diabetes mellitus without complications; E78.5 Hyperlipidemia, unspecified; I44.7 Left bundle-branch block, unspecified; Z91.14 Patient's other noncompliance with medication regimen; Z95.5 Presence of coronary angioplasty implant and graft; Z88.0 Allergy status to penicillin; Z91.041 Radiographic dye allergy status; Y84.8 Other medical procedures as the cause of abnormal reaction of the patient, or of later complication, without mention of misadventure at the time of the procedure; Y92.89 Other specified places as the place of occurrence of the external cause; Z20.828 Contact with and (suspected) exposure to other viral communicable diseases

== ENCOUNTER 2020-02-04 00:55 | Emergency (ER) | payer MEDICAID ==
[~2020-02-04] VITALS: Ht 157.5 cm; Wt 90.7 kg
[~2020-02-04 00:55] MED LIST changes: +ASA81BEC PO; +GLIPIZIDE 10 MG10 MG PO; +LISINOPRIL20 MG PO; +METFORMIN HCL500 M3 PO; +NITROSTAT0.4 M1 SUBLING; +PREDNISONE 5 MG5 M1 PO; +PROAIR HFA8.5 GM INH; +TOPROL XL25 MG PO
[2020-02-04] MEDS ORDERED: DOXYCYCLINE 10100 M2 PO (01:38)
[2020-02-04 01:40] LABS: URINE BILIRUBIN NEGATIVE (Negative); URINE BLOOD NEGATIVE (Negative); URINE CLARITY CLEAR; URINE COLOR YELLOW; URINE GLUCOSE-RANDOM 2+ (Negative); URINE KETONES NEGATIVE (Negative); URINE LEUKOCYTES-REFLEX NEGATIVE (Negative); URINE NITRITE-REFLEX NEGATIVE (Negative); URINE PROTEIN NEGATIVE (Negative); URINE SPECIFIC GRAVITY 1.025 (1.005-1.030); URINE UROBILINOGEN 0.2 E.U./dl (0.2-1.0)
[2020-02-04 01:56] VITALS: BP 119/75
== END 2020-02-04 01:58 | disposition home or self-care (01) ==
LOC: M.ERS 00:55
PROVIDERS: Emergency Medicine Emergency Medical Services
DX: L03.311 Cellulitis of abdominal wall (principal); I10 Essential (primary) hypertension; Z95.5 Presence of coronary angioplasty implant and graft; Z88.0 Allergy status to penicillin; Z91.041 Radiographic dye allergy status

== ENCOUNTER → 2020-02-13 | Outpatient (CLI) | payer MEDICAID ==
[~2020-02-13] MED LIST changes: +DOXYCYCLINE 10100 M2 PO
--- NOTE | 2020-03-03 19:06 | SLEEP ---
[address] [address] SLEEP STUDY REPORT Name: JULIANNEMIKAEL R Room: [facility]#: [id number] Admission: 02/13/20 Attend Phys: Lucie Pitt Discharge: Date of : 58 Report #: [id number] THIS REPORT FOR: cc: Crys Daniels Ahmad W. DO ~ Kip Henning MD This study has been reviewed in its entirety by a board certified sleep specialist DATE OF SERVICE: 02/14/2020 HOME SLEEP STUDY INTERPRETATION: Total duration of the study is 401 minutes. During this time duration, we recorded 68 obstructive apneas in addition to 107 hypopneas with an overall apnea-hypopnea index of 45.9. Body position data indicates the patient was observed in the supine position for 247 minutes. The rest of the time, the patient was on the right side. There is marked nocturnal hypoxemia. The patient spent 101 minutes below an O2 saturation of 90%, out of which 87 minutes were spent below an O2 saturation of 85%. Overall, the patient spent 89.5 minutes below an O2 saturation of 88%. Mean heart rate was 81. IMPRESSION: Severe obstructive sleep apnea with marked nocturnal hypoxemia. Apnea-hypopnea index is noted to be 45.9. The patient spent 89.5 minutes below an O2 saturation of 88%. There is a sustained drop in both the heart rate as well as O2 saturation, the last one-third of the recording, which raises the possibility that there may be limited data collection in this time. Regardless ulcer, the patient does have severe obstructive sleep apnea. RECOMMENDATIONS: Considering severe obstructive sleep apnea as well as marked nocturnal hypoxemia, I would recommend that we proceed to a sleep study in the sleep lab for positive airway pressure titration instead of using a CPAP auto titrated device. <ELECTRONICALLY SIGNED> By: Kip Henning MD 03/03/20 1906 1803 1819Abridget Henning MD /nt
== END ==
LOC: M.SLEEPLAB 02-06 11:00 → M.PUL 13:48 → M.SLEEPLAB 14:00 → M.PUL 14:30
PROVIDERS: ATTEND Internal Medicine
DX: G47.33 Obstructive sleep apnea (adult) (pediatric) (principal); G47.34 Idiopathic sleep related nonobstructive alveolar hypoventilation

== ENCOUNTER 2020-06-07 19:38 | Inpatient (IN) | payer MEDICAID ==
[~2020-06-07] VITALS: Ht 157.5 cm; Wt 100.7 kg
--- NOTE | ~2020-06-07 | EMS ---
[address] [address] EMS Patient Care Report Name: MIKAEL WHITAKER [address]: [address] [id number] Admission: 06/07/20 Attend Phys: Richard Gonzalez MD Discharge: Date of : 58 Report #: [id number] THIS REPORT FOR: //name// Report Transmitted: 06/07/2020 22:30 EMS Care Summary [facility] Incident [id number] @ 06/07/2020 18:54 Incident Location [address] [place] [address] Patient MIKAEL WHITAKER Male, 59 Years 1960 Patient Address [address] [place] [address] Patient History Asthma,Cardiac - Stent, Patient Allergies Penicillin allergy,Intravenous Dye, Patient Medications Other, Chief Complaint chest pain Disposition Transported No Lights/[place] Dispatch Reason Chest Pain (Non-Traumatic) Transported To [facility] Narrative Dispatched to a residence for 59y/o male with chest pain. Upon arrival pt. was lying in bed alert and oriented. Pt. 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 [address] elevation in leads V1, V2, V3. [place] [id number] EMS Patient Care Report Name: MIKAEL WHITAKER Room: [address] Kristie#: [id number] Admission: 06/07/20 Attend Phys: Richard Gonzalez MD Discharge: Date of : 58 Report #: [id number] Pt. was unsure if this was normal for him due to his history. Pt. breath sounds were wheezes in upper flowers. Pt. received ASA, IV was started, NTG, O2, and Duoneb. Pt. pain prior to interventions was 6/10 and decreased to 4/10 upon arrival at ED. ED was informed via radio of possible STEMI. PT. was transported to [facility] for emergency and cardiac services. Initial Vitals @19:05P: 86,R: 20,BP: 140/90,Pain: 6/10,GCS: 15,Glucose: 106,SpO2: 98,Revised Trauma: 12,VA Suspected: true @19:15P: 90,R: 20,BP: 130/80,Pain: 6/10,GCS: 15,SpO2: 100,Revised Trauma: 12, @19:25P: 88,R: 20,BP: 128/75,Pain: 5/10,GCS: 15,SpO2: 100,Revised Trauma: 12, @19:35P: 84,R: 20,BP: 132/90,Pain: 4/10,GCS: 15,SpO2: 100,Revised Trauma: 12, Assessments @19:02MENTAL:No Abnormalities,SKIN:No Abnormalities,HEENT:Head/Face: No Abnormalities,Eyes: No Abnormalities,Neck/Airway: No Abnormalities,LUNG SOUNDS:General: No Abnormalities,Left Upper: No Abnormalities,Right Upper: No Abnormalities,Left Lower: No Abnormalities,Right Lower: No Abnormalities,ABDOMEN:General: No Abnormalities,Left Upper: No Abnormalities,Right Upper: No Abnormalities,Left Lower: No Abnormalities,Right Lower: No Abnormalities,PELVIS//GI:No Abnormalities,EXTREMITIES:Left Arm: No Abnormalities,Right Arm: No Abnormalities,Left Leg: No Abnormalities,Right Leg: No Abnormalities,PULSE:NEURO:No Abnormalities, Impression Chest Pain / Discomfort Procedures @19:10Normal Saline (.9% NaCl) 50cc (20 ga) Site: Hand-RightResponse: UnchangedSucceeded@19:10Oxygen FlowRate: 4 Device: CO2 Nasal Cannula Response: UnchangedSucceeded@19:20Oxygen FlowRate: 8 Device: Nebulizer Response: ImprovedSucceeded@19:20Duoneb - 3.5 Milligrams (mg) - Non-Rebreather MaskResponse: Improved@19:12Aspirin - 324 Milligrams (mg) - OralResponse: Improved@19:15Nitroglycerin - 0.4 Milligrams (mg) - BuccalResponse: Improved@19:0212-Lead ECGResponse: UnchangedSucceeded@19:0312-Lead ECGResponse: UnchangedSucceeded@19:1912-Lead ECGResponse: UnchangedSucceeded@19:3212-Lead ECGResponse: UnchangedSucceeded@19:0812-Lead ECGResponse: UnchangedSucceeded Timeline 18:53,Call Received 18:54,Dispatched 18:56,En Route 18:59,Initial Responder On Scene 18:59,On Scene 19:02,At Patient 19:02,12-Lead ECG,Response: UnchangedSuccjamared, [place] [address] EMS Patient Care Report Name: MIKAEL WHITAKER Room: [address] Kristie#: [id number] Admission: 06/07/20 Attend Phys: Richard Gonzalez MD Discharge: Date of : 58 Report #: [id number] 19:03,12-Lead ECG,Response: UnchangedSucceeded, 19:05,BP: 140/90 M,PULSE: 86,RR: 20 R,SPO2: 98 Ox,ETCO2: ,B,PAIN: 6,GCS: 15, 19:08,12-Lead ECG,Response: UnchangedSucceeded, 19:10,Normal Saline (.9% NaCl) 50cc 20 ga Site: Hand-Right,Response: UnchangedSucceeded, 19:10,Oxygen FlowRate: 4 Device: CO2 Nasal Cannula Response: UnchangedSucceeded, 19:12,Aspirin - 324 Milligrams (mg) - Oral,Response: Improved 19:15,Depart Scene 19:15,Nitroglycerin - 0.4 Milligrams (mg) - Buccal,Response: Improved 19:15,BP: 130/80 M,PULSE: 90,RR: 20 R,SPO2: 100 Ox,ETCO2: ,BG: ,PAIN: 6,GCS: 15, 19:19,12-Lead ECG,Response: UnchangedSucceeded, 19:20,Duoneb - 3.5 Milligrams (mg) - Non-Rebreather Mask,Response: Improved 19:20,Oxygen FlowRate: 8 Device: Nebulizer Response: ImprovedSucceeded, 19:25,BP: 128/75 M,PULSE: 88,RR: 20 R,SPO2: 100 Ox,ETCO2: ,BG: ,PAIN: 5,GCS: 15, 19:32,12-Lead ECG,Response: UnchangedSucceeded, 19:35,BP: 132/90 M,PULSE: 84,RR: 20 R,SPO2: 100 Ox,ETCO2: ,BG: ,PAIN: 4,GCS: 15, 19:36,At Destination 19:40,Transfer Patient 20:06,Call Closed 20:06,In District Disclaimer v1.1 Copyright 2020 [employer] This EMS Care Summary contains data elements from the applicable legal record (which may be displayed differently). It is designed to provide pertinent information for the following purposes: continuity of care, clinical quality, and state data reporting. The complete legal record is available to ED staff and administrators of the receiving hospital in [employer]'s Patient Tracker. All data is provided "as is."
[2020-06-07 19:42] VITALS: BP 157/89
[2020-06-07 19:57] LABS: MPV 7.8 fl. (7.2-11.1)
[2020-06-07 19:59] LABS: ABSOLUTE BASOPHILS 0.2 thou/uL (0.0-0.2); ABSOLUTE EOSINOPHILS 0.3 thou/uL (0.0-0.7); ABSOLUTE LYMPHOCYTES 3.3 thou/uL (0.8-5.3); ABSOLUTE MONOCYTES 1.4 thou/uL (0.0-1.2); ABSOLUTE NEUTROPHILS 10.8 thou/uL (1.6-8.1); BASOPHILS 1.1 %; EOSINOPHILS 1.6 %; HEMATOCRIT 39.3 % (42.0-52.0); HEMOGLOBIN 12.4 gm/dL (14.0-18.0); LYMPHOCYTES 20.7 %; MCH 28.1 pg (26.0-34.0); MCHC 31.6 g/dL (28.0-37.0); MCV 88.9 fL (80.0-100.0); MONOCYTES 8.9 %; NUCLEATED RBCS 0 /100WBC; PLATELET COUNT* 399 thou/uL (150-400); POLYS 67.7 %; RBC 4.42 mil/uL (4.50-6.00); RDW-CV 14.9 % (10.5-14.5); WBC 15.9 thou/uL (4.0-11.0)
[2020-06-07 20:06] LABS: APTT 23.8 Seconds (25.0-31.3); PROTIME 10.3 Seconds (9.20-11.50)
[2020-06-07 20:17] LABS: ALBUMIN 3.8 g/dL (3.4-5.0); CALCIUM 9.8 mg/dL (8.5-10.1); CREATININE 1.3 mg/dL (0.6-1.3); TOTAL BILIRUBIN 0.3 mg/dL (<0.1-1.0); TOTAL PROTEIN 7.6 g/dL (6.4-8.2)
[2020-06-07 23:40] VITALS: BP 134/59
[2020-06-08] VITALS: BP 134/59
[2020-06-08] MEDS ORDERED: METFORMIN HCL500 M3 PO (00:39)
[2020-06-08 04:42] VITALS: BP 134/64
[2020-06-08 08:21] VITALS: BP 143/76
[2020-06-08 11:33] LABS: HEMATOCRIT 35.8 % (42.0-52.0); HEMOGLOBIN 11.5 gm/dL (14.0-18.0); MCH 28.1 pg (26.0-34.0); MCV 87.6 fL (80.0-100.0); MPV 8.2 fl. (7.2-11.1); RBC 4.09 mil/uL (4.50-6.00); RDW-CV 14.7 % (10.5-14.5); WBC 13.4 thou/uL (4.0-11.0)
[2020-06-08 12:00] VITALS: BP 142/80
[2020-06-08 12:02] LABS: ALBUMIN 3.3 g/dL (3.4-5.0); ALKALINE PHOSPHATASE 88 U/L (46-116); ANION GAP 12 mmol/L (7-16); BUN 9 mg/dL (7-18); CALCIUM 9.5 mg/dL (8.5-10.1); CHLORIDE 105 mmol/L (98-107); CO2 22 mmol/L (21-32); CREATININE 0.9 mg/dL (0.6-1.3); GLUCOSE 114 mg/dL (70-99); MAGNESIUM 1.8 mg/dL (1.8-2.4); PHOSPHORUS* 2.7 mg/dL (2.5-4.9); POTASSIUM 3.6 mmol/L (3.5-5.1); SGOT 14 U/L (15-37); SGPT 27 U/L (30-65); SODIUM 139 mmol/L (136-145); TOTAL BILIRUBIN 0.5 mg/dL (<0.1-1.0); TOTAL PROTEIN 6.8 g/dL (6.4-8.2); TROPONIN-I LEVEL <0.06 ng/mL (<0.06)
--- NOTE | 2020-06-08 12:31 | EKG ---
[place] [address] ELECTROCARDIOGRAM REPORT Name: MIKAEL WHITAKER [address]#: [id number] Admission: 06/07/20 Attend Phys: Richard Gonzalez, Discharge: Date of : 58 Date of Service: 06/07/201939 Report #: [id number] THIS REPORT FOR: //name// [facility] ED Test Date: 2020-06-07 Test Time: 19:40:32 Pat Name: MIKAEL WHITAKER Department: Room: [facility] Gender: M Bakery Manager: OTILIA : 1960 Requested By: Debra Rodgers Order Number: [id number] MD: Ramana Cee Measurements Intervals [place] Rate: 84 P: 72 CA: 144 QRS: 16 QRSD: 163 T: 148 QT: 417 QTc: 493 Interpretive Statements Sinus rhythm Probable left atrial enlargement Left bundle branch block Baseline wander in lead(s) II,V4,V5 Compared to ECG 01/23/2020 09:11:48 No significant changes Electronically Signed On 06-08-2020 12:31:36 CDT by Ramana Cee [email or web address] <ELECTRONICALLY SIGNED> By: Ryan Cee MD, [facility] 06/08/20 1231 39 39 Ryan Cee MD, [facility] /EPI
[2020-06-08 15:34] LABS: URINE BILIRUBIN NEGATIVE (Negative); URINE BLOOD NEGATIVE (Negative); URINE CLARITY CLEAR; URINE COLOR YELLOW; URINE GLUCOSE-RANDOM 2+ (Negative); URINE KETONES NEGATIVE (Negative); URINE LEUKOCYTES-REFLEX NEGATIVE (Negative); URINE NITRITE-REFLEX NEGATIVE (Negative); URINE PROTEIN NEGATIVE (Negative); URINE UROBILINOGEN 0.2 E.U./dl (0.2-1.0)
[2020-06-08 16:00] VITALS: BP 111/54
[2020-06-09] VITALS (7 sets, daily range): BP systolic 112–160; BP diastolic 56–88
--- NOTE | 2020-06-09 09:56 | CON ---
[address] [address] CONSULTATION Name: MIKAEL WHITAKER Gricel Room: [address] RamezR.#: [id number] Admission: 06/07/20 Attend Phys: Richard Gonzalez MD Discharge: Date of : 58 Report #: [id number] THIS REPORT FOR: cc: Crys Daniels Ahmad W. DO Biggs, F. Douglas MD [facility] ~ DOC #: [id number] Ramana Cee MD [facility] DATE OF CONSULTATION: 06/08/2020 HISTORY OF PRESENT ILLNESS: I was asked by Dr. Gonzalez to see this 59-year-old white male in cardiology consultation for evaluation and treatment of chest pain. This man is a very poor historian. He came to the hospital yesterday evening with chest pain. He has a history of coronary artery disease. He had a coronary stent in late January of last year. I believe he had a stent in his mid LAD placed by Dr. Powell. He additionally besides his coronary disease has COPD, essential hypertension, hypercholesterolemia, mild right carotid stenosis and he is morbidly obese. He began having chest pain approximately 2 hours before coming to the hospital. He describes the chest pain as substernal. It was a tightness, was a 7 on a scale of 10. It was like his previous coronary pain. He did take nitroglycerin for it. The nitroglycerin did not help him. The pain did radiate to his face and right ear. Again, the pain lasted 2 hours. After he got to the hospital, he got another nitroglycerin and it seemed to help. Again, this man is a poor historian. He did have associated shortness of breath, but he seems to be chronically short of breath and to me at least, he was short of breath today. There were no other associated symptom. There was no other radiation of the pain. He has not had any pain since he was relieved of his pain by nitroglycerin in the ER. His EKG showed left bundle branch block. He is known to have a chronic left bundle branch block. It is apparently unchanged from his previous EKG, although I do not have a previous EKG for comparison, this is from the ER doctor's notes on the EKG. He had three troponins that were negative. His BNP was apparently not done. PAST MEDICAL HISTORY: As described above. HOME MEDICATIONS: Include aspirin 81 mg daily, atorvastatin 80 mg daily, Plavix 75 mg daily, BiDil daily, I wonder if that is really supposed to be isosorbide mononitrate as I think this drug list is wrong. He is also supposed to be taking lisinopril 20 mg daily, metformin 500 mg daily, apparently for diabetes, metoprolol 25 mg b.i.d. and p.r.n. nitroglycerin. I doubt very much if this man is taking BiDil. ALLERGIES: HE IS ALLERGIC TO CONTRAST DYE AND PENICILLIN. REVIEW OF SYSTEMS: Review of systems was unremarkable. [place] [address] CONSULTATION Name: MIKAEL WHITAKER Room: [address] Adela Flowers#: [id number] Admission: 06/07/20 Attend Phys: Richard Gonzalez MD Discharge: Date of : 58 Report #: [id number] of systems form for details and negatives in review of system. Negative for some 45 different complaints in 14 different system categories except as per the history of present illness and past medical history. SOCIAL HISTORY: Does not smoke, drink or use illegal drugs. FAMILY HISTORY: There is a family history of coronary heart disease. PHYSICAL EXAMINATION: GENERAL: He presents as a well-developed, well-nourished, morbidly obese white male in no acute distress. VITAL SIGNS: He is said to be 5 feet 2 inches tall and 215 pounds. His pulse was 85 and regular, blood pressure is 134/64, respirations 16 and regular, temperature was 99.0. HEENT: His head is atraumatic. Eyes are clear. NECK: Supple. There is no jugular venous distention or hepatojugular reflux. Thyroid is not enlarged. There is no adenopathy SKIN: Skin is warm and dry. Mucous membranes are moist. LUNGS: Revealed decreased breath sounds bilaterally with an increased expiratory phase. There were some coarse breath sounds. HEART: Examination of the heart revealed a normal first and second heart sound, although they were somewhat distant. The rhythm was regular. The rate was normal at 85. PMI was not displaced. There was a soft S4. There was no S3. There is a 3/6 systolic murmur heard in the mitral area. ABDOMEN: Obese, soft and nontender. There are no palpable masses, no organomegaly. EXTREMITIES: Revealed no cyanosis, clubbing or edema. NEUROLOGIC: The patient mentated fairly normally, but was not completely normal. He is somewhat slow. He moved all extremities normally. IMPRESSION: 1. Chest pain, suspicious for cardiac pain. 2. Coronary artery disease. 3. Status post coronary stents. 4. Chronic obstructive pulmonary disease. 5. Essential hypertension. 6. Hypercholesterolemia. 7. Right carotid stenosis. 8. Morbid obesity. 9. Systolic heart murmur. RECOMMENDATION: He should get a nuclear stress test and echo. Thank you very much for asking me to see the patient. [place] [address] CONSULTATION Name: MIKAEL WHITAKER Gricel Room: [address] Kristie#: [id number] Admission: 06/07/20 Attend Phys: Richard Gonzalez MD Discharge: Date of : 58 Report #: [id number] questions, please feel free to contact me. Ramana Cee MD [facility] DFB/GAU <ELECTRONICALLY SIGNED> By: Ryan Cee MD, [facility] 06/09/20 0956 1004 1221F. Ramana Cee MD, [facility] /nt
[2020-06-10 04:00] VITALS: BP 182/74
[2020-06-10 08:21] VITALS: BP 150/88
--- NOTE | 2020-06-10 09:52 | EKG ---
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1886 : 1960 Requested By: Richard Gonzalez Order Number: [id number] Todd MD: Yamil Celis Measurements Intervals [place] Rate: 75 P: 70 MS: 153 QRS: 44 QRSD: 153 T: 107 QT: 427 QTc: 477 Interpretive Statements Sinus rhythm Probable left atrial enlargement Left bundle branch block Compared to ECG 06/07/2020 19:40:32 No significant changes Electronically Signed On 06-10-2020 9:52:41 CDT by Yamil Celis [email or web address] <ELECTRONICALLY SIGNED> By: Yamil Celis MD, [facility] 06/10/20 0952 1848 1848 Yamil Celis MD, [facility] /EPI
[2020-06-10 12:00] VITALS: BP 148/88
--- NOTE | 2020-06-10 14:28 | 2DMMODE ---
[place] [address] 2 D/M-MODE ECHOCARDIOGRAM Name: MIKAEL WHITAKER Room: [address] IN [facility]#: [id number] Admission: 06/09/20 Attend Phys: Richard Gonzalez, Discharge: Date of : 58 Date of Service: 06/10/20 1428 Report #: [id number] THIS REPORT FOR: cc: Crys Daniels,Yamil Perry MD [facility] ~ APPROVED REPORT Study performed: 06/10/2020 09:48:33 EXAM: Comprehensive 2D, Doppler, and color-flow Echocardiogram Patient Location: In-Patient Room #: [facility] Status: routine BSA: 1.97 HR: 78 bpm BP: 150/88 mmHg Rhythm: NSR Other Information Study Quality: Good Indications COPD CAD Chest Pain 2D Dimensions IVSd: 10.67 (7-11mm) LVOT Diam: 19.30 (18-24mm) LVDd: 51.79 mm PWd: 9.59 (7-11mm) Ascending Ao: 31.43 (22-36mm) LVDs: 33.56 (25-40mm) Aortic Root: 31.72 mm Volumes Left Atrial Volume (Systole) LA ESV Index: 23.30 mL/m2 Aortic Valve AoV Peak Kee.: 1.99 m/s AO Peak Gr.: 15.78 mmHg LVOT Max P.60 mmHg AO Mean Gr.: 9.27 mmHg LVOT Mean P.42 mmHg LVOT Max V: 1.07 m/s AO V2 VTI: 39.98 cm LVOT Mean V: 0.72 m/[place] [address] 2 D/M-MODE ECHOCARDIOGRAM Name: MIKAEL WHITAKER Room: [address] [place] M.R.#: [id number] Admission: 06/09/20 Attend Phys: Richard Gonzalez, Discharge: Date of : 58 Date of Service: 06/10/20 1428 Report #: [id number] LIAM (VTI): 1.53 cm2 LVOT V1 VTI: 20.95 cm Mitral Valve MV Mean Gr.: 2.71 mmHg E/A Ratio: 0.86 MV Decel. Time: 242.98 ms MV E Max Kee.: 1.02 m/s MV PHT: 70.46 ms MVA (PHT): 3.12 cm2 TDI E/Lateral E': 12.75 E/Medial E': 14.57 Medial E' Kee.: 0.07 m/s Lateral E' Kee.: 0.08 m/s Pulmonary Valve PV Peak Kee.: 1.21 m/s PV Peak Gr.: 5.83 mmHg Tricuspid Valve RAP Estimate: 5.00 mmHg TR Peak Gr.: 24.38 mmHg RVSP: 29.00 mmHg PA Pressure: 29.00 mmHg Left Ventricle The left ventricle is normal size. paradoxical septal motion consistent with a LBBB There is normal left ventricular wall thickness. Left ventricular systolic function is normal. The left ventricular ejection fraction is within the normal range. LVEF is 55-60%. Grade I - abnormal relaxation pattern. Right Ventricle The right ventricle is normal size. The right ventricular systolic function is normal. Atria The left atrium size is normal. The right atrium size is normal. Aortic Valve Aortic valve is calcified. No aortic regurgitation is present. Mild aortic stenosis. Mitral Valve There is mitral annular calcification. The mitral valve is normal in structure. Mild mitral regurgitation. [place] [address] 2 D/M-MODE ECHOCARDIOGRAM Name: MIKAEL WHITAKER Gricel Room: [address] [place] [facility]#: [id number] Admission: 06/09/20 Attend Phys: Richard Gonzalez, Discharge: Date of : 58 Date of Service: 06/10/20 1428 Report #: [id number] Tricuspid Valve The tricuspid valve is normal in structure. Trace tricuspid regurgitation. No pulmonary hypertension. Pulmonic Valve The pulmonary valve is normal in structure. There is no pulmonic valvular regurgitation. Great Vessels The aortic root is normal in size. IVC is normal in size and collapses >50% with inspiration. Pericardium There is no pericardial effusion. <Conclusion> LVEF is 55-60%. Mild aortic stenosis. Mild mitral regurgitation. <ELECTRONICALLY SIGNED> By: Yamil Celis MD, [facility] 06/10/20 1428 1428 1428 Yamil Celis MD, FACC /INF
[2020-06-10] MEDS ORDERED: IMDUR 30 MG TAB30 M1 PO (14:34)
[2020-06-10] MEDS ORDERED: CIPROFLOXIN HC2.5 M1 OTIC (14:34)
[2020-06-10] MEDS ORDERED: PREDNISONE 10 M10 MG PO (14:34)
[2020-06-10 16:00] VITALS: BP 137/73
[2020-06-10 20:00] VITALS: BP 128/55
[2020-06-11 00:27] VITALS: BP 148/80
[2020-06-11 04:19] VITALS: BP 168/86
[2020-06-11 06:06] LABS: ABSOLUTE BASOPHILS 0.1 thou/uL (0.0-0.2); ABSOLUTE EOSINOPHILS 0.1 thou/uL (0.0-0.7); ABSOLUTE LYMPHOCYTES 3.9 thou/uL (0.8-5.3); ABSOLUTE MONOCYTES 1.6 thou/uL (0.0-1.2); ABSOLUTE NEUTROPHILS 10.1 thou/uL (1.6-8.1); BASOPHILS 0.5 %; EOSINOPHILS 0.3 %; HEMATOCRIT 37.5 % (42.0-52.0); HEMOGLOBIN 11.8 gm/dL (14.0-18.0); LYMPHOCYTES 24.7 %; MCH 27.7 pg (26.0-34.0); MCHC 31.4 g/dL (28.0-37.0); MCV 88.4 fL (80.0-100.0); MONOCYTES 10.4 %; MPV 8.4 fl. (7.2-11.1); NUCLEATED RBCS 0 /100WBC; PLATELET COUNT* 404 thou/uL (150-400); POLYS 64.1 %; RBC 4.25 mil/uL (4.50-6.00); RDW-CV 14.8 % (10.5-14.5); WBC 15.7 thou/uL (4.0-11.0)
[2020-06-11 06:19] LABS: ALBUMIN 3.2 g/dL (3.4-5.0); CALCIUM 9.1 mg/dL (8.5-10.1); CREATININE 1.2 mg/dL (0.6-1.3); POTASSIUM 4.2 mmol/L (3.5-5.1); TOTAL BILIRUBIN 0.2 mg/dL (<0.1-1.0); TOTAL PROTEIN 7.4 g/dL (6.4-8.2)
[2020-06-11 07:59] VITALS: BP 153/79
--- NOTE | 2020-06-11 11:30 | CARDNUC ---
[place] [address] CARDIAC NUCLEAR IMAGING REPORT Name: MIKAEL WHITAKER Room: [address] IN [facility]#: [id number] Admission: 06/09/20 Attend Phys: Richard Gonzalez, Discharge: Date of : 58 Date of Service: 06/11/20 1130 Report #: [id number] THIS REPORT FOR: cc: Crys Daniels Ahmad W. DO Liston, Michael J. MD [facility] ~ APPROVED REPORT Imaging Protocol: Stress Tc-99m/Rest Tc-99m 2 days Study performed: 06/08/2020 11:10:00 Indication: Chest pain radiating to arms, dyspnea. Patient Location: In-Patient Room #: 205 Stress Tech: Liya Tillman Stress Nurse: Puja Aguila RN NM Tech:TOM Cardozo Ht: 5 ft 2 in Wt: 200 lbs BSA: 1.91 m2 BMI: 36.57 Medical History Medical History: Radiating chest pain to arms, dyspnea, COPD, sleep apnea, asthma, mild right carotid stenosis, CAD s/p stent, HTN, HLD, current smoker, systolic heart murmur, LBBB, DM, poor historian. Medications: ASA 81 mg, Atorvastatin, Plavix, Lisinopril, Metformin, Solu-medrol, Metoprolol, Imdur, NTG. Allergies: Contrast dyes, PNC, bleach. Cardiac Risk Factors: Age, Current Smoker, DM, HTN, Hyperlipidemia, SOB, LBBB, systolic heart murmur. Previous Cardiac Procedures: PCI Pretest Chest Pain Characteristics: No chest pain Exercise History: Sedentary Physical Disabilities: Heart murmur, LBBB. Meds Held (24 hrs): NTG, Imdur. Resting Data Rest SPECT myocardial perfusion imaging was performed in supine position 30 minutes following the intravenous injection of 36.0 mCi of Tc-99m Sestamibi. Time of rest injection: 1025 Date: 06/11/2020 The images were gated to evaluate regional wall motion and calculate left [place] [address] CARDIAC NUCLEAR IMAGING REPORT Name: MIKAEL WHITAKER Room: [address]#: [id number] Admission: 06/09/20 Attend Phys: Richard Gonzalez, Discharge: Date of : 58 Date of Service: 06/11/20 1130 Report #: [id number] Administration Route: IV Administration Site: Right Arm Pharmacologic Stress Pharmacologic stress test was performed by injecting Regadenoson 0.4 mg IV push over 10-15 seconds immediately followed by the intravenous injection of 32.5 mCi of Tc-99m Sestamibi. Time of stress injection: 13;35 Date: 06/10/2020 Administration Route: IV Administration Site: Right Arm Heart Rate at time of stress injection: 104 bpm. Gated Stress SPECT was performed 40 minutes after stress injection. The images were gated to evaluate regional wall motion and calculate left ventricular ejection fraction. Prone imaging was performed. Stress Test Details Stress Test: Pharmacologic stress testing performed using 0.4 mg of regadenoson per 5 mL given IV over 10 seconds. Reason for pharmacologic stress test: Heart murmur, LBBB.. HR Max Heart Rate (APMHR): 160 bpm Resting HR: 67 bpm Target HR (85% APMHR): 136 bpm Max HR Achieved: 104 bpm % of APMHR: 65 Recovery HR: 89 bpm BP Resting BP: 135/79 mmHg Max BP: 165/94 mmHg Recovery BP: 145/98 mmHg ECG Resting ECG: Sinus Rhythm, LBBB Stress ECG: Sinus Rhythm, LBBB ST Change: None Arrhythmia: None Recovery ECG: Sinus Rhythm, LBBB Recovery ST Change: None Recovery Arrhythmia: None Clinical Reason for Termination: Completed protocol Stress Symptoms: Dyspnea, Flushed/warmth. Exercise duration: 00 min 00 sec Exercise capacity: 1.00 [place] [address] CARDIAC NUCLEAR IMAGING REPORT Name: MIKAEL WHITAKER Room: [address]#: [id number] Admission: 06/09/20 Attend Phys: Richard Gonzalez, Discharge: Date of : 58 Date of Service: 06/11/20 1130 Report #: [id number] The patient tolerated Lexiscan infusion without significant cardiac symptoms. Nurse Comments A 59 year old male inpatient presented for a sitting Lexiscan. Test well tolerated. Recovery unremarkable. Patient was stable and stated he felt good when escorted via wheelchair to Nuclear Medicine for imaging. Poor historian, probable learning disability. Stress ECG Conclusion Baseline twelve-lead EKG shows sinus rhythm with left bundle branch block. EKGs obtained during and post Lexiscan infusion shows sinus rhythm and sinus tachycardia with persistent left bundle branch block. There were no significant EKG changes noted. There were no stress-induced arrhythmias. Study Quality Study: Good Artifact: Mild Diaphragmatic artifact Study Data At rest, the left ventricular ejection fraction was 60%.. Post stress, the left ventricular ejection was 57%.. TID = 1.14. Perfusion Perfusion images obtained in the supine position at rest and post Lexiscan stress show a moderate region of diaphragmatic attenuation artifact. Post-rest prone imaging shows no significant defect. Wall Motion Gated studies were suboptimal for wall motion assessment. Nuclear Conclusion ECG Findings: non-diagnostic Clinical Findings: negative for ischemia Nuclear Findings: negative for ischemia Exercise Capacity: not assessed Left Ventricular Function: normal Risk Study: low Perfusion images show no fixed or reversible defects to suggest infarct or ischemia. Raw data suggests preserved left ventricular systolic function. This is a low risk study. <Conclusion> Baseline twelve-lead EKG shows sinus rhythm with left bundle branch [address] [place] [address] CARDIAC NUCLEAR IMAGING REPORT Name: MIKAEL WHITAKER Room: [address] IN M.R.#: [id number] Admission: 06/09/20 Attend Phys: Richard Gonzalez, Discharge: Date of : 58 Date of Service: 06/11/20 1130 Report #: [id number]. EKGs obtained during and post Lexiscan infusion shows sinus rhythm and sinus tachycardia with persistent left bundle branch block. There were no significant EKG changes noted. There were no stress-induced arrhythmias. <ELECTRONICALLY SIGNED> By: Benson Valero MD, FACC 06/11/20 1130 29 113 Benson Valero MD, FACC /INF
[2020-06-11 12:00] VITALS: BP 145/84
[2020-06-11 12:11] VITALS: BP 153/79
[2020-06-11 13:14] VITALS: BP 153/79
== END 2020-06-11 13:13 | disposition home or self-care (01) | DRG 191 ==
LOC: M.ERS 19:38 → M.TBA-ER 22:23 → M.2W 23:15
PROVIDERS: Internal Medicine; Personal Emergency Response Attendant; ADMIT Internal Medicine; ATTEND Internal Medicine
DX: J44.1 Chronic obstructive pulmonary disease with (acute) exacerbation (principal); Z68.41 Body mass index [BMI] 40.0-44.9, adult; D47.01 Cutaneous mastocytosis; I25.118 Atherosclerotic heart disease of native coronary artery with other forms of angina pectoris; E78.00 Pure hypercholesterolemia, unspecified; E66.01 Morbid (severe) obesity due to excess calories; I65.21 Occlusion and stenosis of right carotid artery; F17.210 Nicotine dependence, cigarettes, uncomplicated; G47.33 Obstructive sleep apnea (adult) (pediatric); E78.5 Hyperlipidemia, unspecified; I10 Essential (primary) hypertension; Z20.822 Contact with and (suspected) exposure to COVID-19; Z95.5 Presence of coronary angioplasty implant and graft; Z79.899 Other long term (current) drug therapy; Z79.84 Long term (current) use of oral hypoglycemic drugs; Z88.0 Allergy status to penicillin; Z91.041 Radiographic dye allergy status

== ENCOUNTER 2020-08-05 19:11 | Emergency (ER) | payer MEDICAID ==
[~2020-08-05] VITALS: Ht 157.5 cm; Wt 104.3 kg
[~2020-08-05 19:11] MED LIST changes: +CIPROFLOXIN HC2.5 M1 OTIC; +IMDUR 30 MG TAB30 M1 PO
[2020-08-05 21:24] LABS: ABSOLUTE BASOPHILS 0.2 thou/uL (0.0-0.2); ABSOLUTE EOSINOPHILS 0.4 thou/uL (0.0-0.7); ABSOLUTE LYMPHOCYTES 3.5 thou/uL (0.8-5.3); ABSOLUTE MONOCYTES 0.8 thou/uL (0.0-1.2); ABSOLUTE NEUTROPHILS 5.5 thou/uL (1.6-8.1); BASOPHILS 1.5 %; EOSINOPHILS 3.5 %; HEMATOCRIT 38.5 % (42.0-52.0); LYMPHOCYTES 34.1 %; MCH 29.2 pg (26.0-34.0); MCHC 33.9 g/dL (28.0-37.0); MCV 86.1 fL (80.0-100.0); MONOCYTES 8.2 %; MPV 7.8 fl. (7.2-11.1); NUCLEATED RBCS 0 /100WBC; PLATELET COUNT* 352 thou/uL (150-400); POLYS 52.7 %; RBC 4.46 mil/uL (4.50-6.00); RDW-CV 15.7 % (10.5-14.5); WBC 10.4 thou/uL (4.0-11.0)
[2020-08-05 21:29] LABS: CALCIUM 9.5 mg/dL (8.5-10.1); POTASSIUM 4.1 mmol/L (3.5-5.1)
[2020-08-05 21:34] LABS: ALBUMIN 3.9 g/dL (3.4-5.0); TOTAL BILIRUBIN 0.3 mg/dL (<0.1-1.0); TOTAL PROTEIN 7.9 g/dL (6.4-8.2)
[2020-08-05] MEDS ORDERED: DOXYCYCLINE 10100 MG PO (22:10)
[2020-08-05 22:20] VITALS: BP 142/65
== END 2020-08-05 22:20 | disposition home or self-care (01) ==
LOC: M.ERS 19:11
PROVIDERS: Nurse Practitioner Family
DX: S30.1XXA Contusion of abdominal wall, initial encounter (principal); L03.311 Cellulitis of abdominal wall; I10 Essential (primary) hypertension; E11.9 Type 2 diabetes mellitus without complications; G47.33 Obstructive sleep apnea (adult) (pediatric); Z88.0 Allergy status to penicillin; Z91.041 Radiographic dye allergy status; Z88.8 Allergy status to other drugs, medicaments and biological substances; Z95.5 Presence of coronary angioplasty implant and graft; X58.XXXA Exposure to other specified factors, initial encounter; Y93.89 Activity, other specified; Y92.89 Other specified places as the place of occurrence of the external cause; Y99.8 Other external cause status

== ENCOUNTER 2020-10-20 19:31 | Inpatient (IN) | payer MEDICAID ==
[~2020-10-20] VITALS: Ht 157.5 cm; Wt 85.7 kg
[~2020-10-20 19:31] MED LIST changes: +DOXYCYCLINE 10100 MG PO
[2020-10-20 19:36] VITALS: BP 153/99
[2020-10-20 19:53] LABS: ABSOLUTE BASOPHILS 0.1 thou/uL (0.0-0.2); ABSOLUTE MONOCYTES 0.8 thou/uL (0.0-1.2); BASOPHILS 0.7 %; EOSINOPHILS 0.7 %; HEMATOCRIT 42.4 % (42.0-52.0); HEMOGLOBIN 14.1 gm/dL (14.0-18.0); LYMPHOCYTES 29.3 %; MCH 28.9 pg (26.0-34.0); MCHC 33.1 g/dL (28.0-37.0); MCV 87.3 fL (80.0-100.0); MONOCYTES 11.9 %; NUCLEATED RBCS 0 /100WBC; PLATELET COUNT* 292 thou/uL (150-400); POLYS 57.4 %; RBC 4.86 mil/uL (4.50-6.00); RDW-CV 16.2 % (10.5-14.5); WBC 6.9 thou/uL (4.0-11.0)
[2020-10-20 19:59] LABS: CALCIUM 9.1 mg/dL (8.5-10.1); CREATININE 1.1 mg/dL (0.6-1.3); POTASSIUM 3.8 mmol/L (3.5-5.1)
[2020-10-20 20:03] LABS: TOTAL BILIRUBIN 0.3 mg/dL (<0.1-1.0); TOTAL PROTEIN 7.4 g/dL (6.4-8.2)
[2020-10-20 20:24] LABS: APTT 25.2 Seconds (25.0-31.3); PROTIME 10.4 Seconds (9.20-11.50)
[2020-10-20 23:17] VITALS: BP 141/70
[2020-10-20 23:45] VITALS: BP 147/85
--- NOTE | 2020-10-20 23:45 | NUR ---
RECEIVED REPORT FROM ER, PT TO ROOM PER BED AT 2320. PT STATES BRIGHT RED STOOLS AT HOME. NO ACUTE DISTRESS. EXPLAINED NPO STATUS AND UPSET WITH STILL, SWABS GIVEN FOR MOISTURE. TELEMETRY APPLIED SHOWING SR. SEE ADMISSION ASSESSMENT AND HX.
--- NOTE | 2020-10-21 00:30 | NUR ---
ASSISTED TO BR WITH STEADY GAIT. HAD LG LIQ PACHECO COLORED STOOL, NO BLEEDING NOTED. PT STATES WAS SOME WHEN WIPED.
[2020-10-21 04:16] LABS: HEMATOCRIT 39.7 % (42.0-52.0); HEMOGLOBIN 12.8 gm/dL (14.0-18.0); MCH 28.1 pg (26.0-34.0); MCHC 32.4 g/dL (28.0-37.0); MCV 86.8 fL (80.0-100.0); MPV 8.2 fl. (7.2-11.1); RBC 4.57 mil/uL (4.50-6.00); RDW-CV 15.7 % (10.5-14.5); WBC 3.7 thou/uL (4.0-11.0)
[2020-10-21 04:38] LABS: CALCIUM 8.5 mg/dL (8.5-10.1); CREATININE 0.9 mg/dL (0.6-1.3); POTASSIUM 3.9 mmol/L (3.5-5.1)
[2020-10-21 04:44] VITALS: BP 143/70
[2020-10-21 08:10] VITALS: BP 145/83
--- NOTE | 2020-10-21 10:13 | EKG ---
[place] [address] ELECTROCARDIOGRAM REPORT Name: MIKAEL WHITAKER Room: [address] ADM IN ..#: [id number] Admission: 10/20/20 Attend Phys: Zion Seals Discharge: Date of : 58 Date of Service: 10/20/201938 Report #: [id number] THIS REPORT FOR: //name// [facility] ED Test Date: 2020-10-20 Test Time: 19:39:48 Pat Name: MIKAEL WHITAKER Department: Room: [facility] Gender: M Asphalt Layer: MICHAEL : 1960 Requested By: Jael Carroll Order Number: [id number] MD: Yamil Celis Measurements Intervals [place] Rate: 67 P: 71 [place]: 153 QRS: 13 QRSD: 167 T: 165 QT: 436 QTc: 461 Interpretive Statements Sinus rhythm Left bundle branch block Baseline wander in lead(s) II,III,aVL,aVF Compared to ECG 06/09/2020 18:48:58 No significant changes Electronically Signed On 10-21-2020 10:13:42 CDT by Yamil Celis [email or web address] <ELECTRONICALLY SIGNED> By: Yamil Celis MD, FACC 10/21/20 1013 38 38 Yamil Celis MD, FAC /EPI
--- NOTE | 2020-10-21 10:27 | NUR ---
CM ASSESSMENT: PT A&O, NORMALLY INDEPENDENT WITH ADL'S, AND ACTIVE. PT RESIDES AT HOME WITH SON AND DIL. PT USES 0 DME. PT HAS 0 HX OF HH OR SNF. GI CONSULTED. NO CM D/C PLANNING NEEDS ANTICIPATED. CM WILL REMAIN AVAILABLE TO ASSIST AND FOLLOW NEEDED.
[2020-10-21 11:30] VITALS: BP 132/56
--- NOTE | 2020-10-21 15:48 | CON ---
[address] [address] CONSULTATION Name: JULIANNEMIKAEL Gricel Room: [address] IN M.R.#: [id number] Admission: 10/20/20 Attend Phys: Hari Craven Discharge: Date of : 58 Report #: [id number] THIS REPORT FOR: cc: Crys Daniels Ahmad W. DO Blick, David R. MD [facility] ~ DATE OF CONSULTATION: 10/21/2020 HISTORY OF PRESENT ILLNESS: The patient is a 59-year-old single white male who I was asked to see in the hospital today because of his history of coronary artery disease. The patient had 2 coronary artery stents placed in [place] several years ago. He was admitted to [facility] in January with acute coronary syndrome. Dr. Powell placed stents in his LAD. He has had no significant chest pain since that time. He is not very active at this time. He was doing well until 2 days ago, he was at home when he tripped and fell. He then noticed some arm and chest discomfort. He also notes for the past several days, he has had blood in his stool. He has had no appetite. He felt lightheaded. His family finally called the ambulance yesterday, he was brought to [facility] and admitted. Cardiology consultation requested. He denies any palpitations or syncope. PAST MEDICAL HISTORY: He has had no other surgical procedures. He does have a history of COPD, hyperlipidemia, hypertension. CURRENT MEDICATIONS: Include albuterol inhaler, Lipitor, Plavix, glipizide, BiDil, lisinopril, metoprolol, Seroquel, aspirin. ALLERGIES: HE HAS A PREVIOUS INTOLERANCE TO PENICILLIN. FAMILY HISTORY: His father had heart disease. SOCIAL HISTORY: He is , lives with son in [place]. He is retired from working in a factory. He smokes a pack of cigarettes a day, does smoke marijuana occasionally. No alcohol abuse. REVIEW OF SYSTEMS: He has had no history of stroke. He does have COPD, uses inhaler. No history of liver disease, kidney disease, cancer. He has a history of depression. No chronic skin condition. PHYSICAL EXAMINATION: GENERAL: Revealed a middle-aged male, lying in bed, appeared in no distress. VITAL SIGNS: Blood pressure was 140/70, pulse 70, he is afebrile. HEENT: He was anicteric. Conjunctivae pink. Mucosa moist. NECK: Veins not appear distended. Radiating systolic murmur [place] [address] CONSULTATION Name: MIKAEL WHITAKER Room: [address] IN [facility]#: [id number] Admission: 10/20/20 Attend Phys: Hari Craven Discharge: Date of : 58 Report #: [id number] CHEST: Revealed distant breath sounds. HEART: Regular rate and rhythm. Grade 3 systolic ejection murmur at left sternal border. ABDOMEN: Soft. EXTREMITIES: Had no edema. Dorsalis pedis pulse, 2+ bilaterally. SKIN: Cool and dry. LABORATORY DATA: His ECG on admission showed a sinus rhythm with a left bundle branch block. The patient actually had a nuclear stress test in June that showed ejection fraction of 60%, diaphragmatic attenuation, but no significant ischemia was noted. The patient actually had an echocardiogram in June that showed ejection fraction of 60%. There was evidence of mild aortic stenosis with a peak gradient across the aortic valve of 16 [address]. He had a CT scan of the abdomen and pelvis last night in the Emergency Room after he presented with GI bleeding that showed no significant abnormality. His lab work, sodium 138, creatinine 0.9. High sensitivity troponin was 8. His hemoglobin 12.8. His COVID antigen stat test was negative. IMPRESSION AND RECOMMENDATIONS: 1. Gastrointestinal bleeding. No cardiac contraindication to endoscopy. 2. Previous stent. I would hold aspirin and Plavix at this time. After GI workup, I would consider resuming Plavix, but discontinue aspirin. 3. Hyperlipidemia. The patient is on a statin drug. 4. Chronic obstructive pulmonary disease. 5. Tobacco abuse. 6. Hypertension. The patient is on LETI inhibitor, beta willie. 7. Mild carotid stenosis. Previous Doppler study showed less than 50% stenosis. 8. Mild aortic stenosis. 9. History of depression. 10. Tobacco abuse. I strongly recommended he attempt to stop smoking. <ELECTRONICALLY SIGNED> By: Yamil Celis MD, [facility] 10/21/20 1548 [id number] Celis MD, [facility] /nt
[2020-10-21 16:00] VITALS: BP 181/90
--- NOTE | 2020-10-21 17:49 | CON ---
[address] [address] CONSULTATION Name: MIKAEL WHITAKER Room: [address] IN .R.#: [id number] Admission: 10/20/20 Attend Phys: Hari Craven Discharge: Date of : 58 Report #: [id number] THIS REPORT FOR: cc: Crys Daniels Ahmad W. DO Vardakis, Gregory DO cc: Crys Daniels DO DATE OF CONSULTATION: 10/21/2020 Please note at the time of this dictation, the patient was seen and physically examined by myself. REASON FOR CONSULTATION: Bright red rectal bleeding. HISTORY OF PRESENT ILLNESS: This 59-year-old male presented to the emergency room with having too numerous to count, he says of bright red bloody stools that started on Wednesday. He states on Wednesday, he had a normal bowel movement. He states his bowels move daily, soft and formed on a regular basis and this is the first time was yesterday morning when he noticed the bright red rectal bleeding. The patient does take a blood thinner, Plavix for his history of stent placement back in 2019. The patient states he had no nausea, vomiting, chest pain, loss of appetite, weight loss. He has never had an EGD or a colonoscopy either. The patient has not had a bright red bloody stool since he has been admitted to the hospital. ALLERGIES: CONTRAST DYE, PENICILLIN AND BLEACH. MEDICATIONS FROM HOME: Include atorvastatin, aspirin, lisinopril, metformin, Plavix, and Toprol. PAST MEDICAL HISTORY: Significant for COPD, hypertension, hyperlipidemia. PAST SURGICAL HISTORY: Stent placement in 01/2019. FAMILY HISTORY: He has 12 siblings, 8 sisters and 4 brothers. He has only detailed me about the one brother who is from colon cancer. SOCIAL HISTORY: The patient smokes at least a pack a day. He denies any alcohol use. He does smoke marijuana on a regular basis. He is currently living with his son and [id number] with three grandkids. REVIEW OF SYSTEMS: Twelve point review of systems is essentially negative except what is [place] [address] CONSULTATION Name: MIKAEL WHITAKER Room: [address] IN [facility]#: [id number] Admission: 10/20/20 Attend Phys: Hari Craven Discharge: Date of : 58 Report #: [id number] PHYSICAL EXAMINATION: VITAL SIGNS: Temperature 36.7, pulse 60, respirations 20, blood pressure 145/83. HEART: Regular rate and rhythm. LUNGS: Clear. ABDOMEN: Soft, positive bowel sounds in all four quadrants with some tenderness noted in the lower aspect, right greater than left. LABORATORY DATA: Hemoglobin on admission was 14.1, he has 12.8 this morning, white count is 3.7, platelets 278. Is normal in looking back, has been around 13. GFR is 86, total bilirubin is 0.3, alkaline phosphatase 126, ALT 31, AST is 24. He had a CTA that was performed that was essentially negative. IMPRESSION: 1. Bright red bleeding rectally. 2. Abdominal pain, lower right greater than left. 3. Elevated GGTP. 4. Anticoagulant therapy, Plavix, history of stents. 5. Family history of colon cancer, brother who is . 6. THC use on a regular basis. PLAN: 1. Colonoscopy tomorrow with Dr. Mckeon. 2. Obtain a GGTP for elevated alkaline phosphatase. 3. Obtain cardiac clearance. 4. Further recommendations to be made after Dr. Mckeon sees and the colonoscopy has been performed. Thank you for allowing us to participate in this patient's care. Please do not hesitate to call with any questions regard to this consult. <ELECTRONICALLY SIGNED> By: Amador Mckeon DO 10/21/20 1749 [id number] [id number] Mckeon DO /nt
--- NOTE | 2020-10-21 17:53 | NUR ---
PATIENT HAS REMAINED A&OX4, PLEASANT AND COOPERATIVE WITH CARES THIS SHIFT. MEDICATIONS ADMINISTERED ORDERED. PATIENT HAS ALREADY DRANK ALL OF HIS MIRALAX IN PREPARATION FOR COLONOSCOPY TOMORROW AND IS HAVING LOOSE BOWEL MOVEMENTS AT THIS TIME. PATIENT CURRENTLY ON CLEAR LIQUID DIET AND WILL BE NPO AFTER MIDNIGHT. CALL LIGHT AND FREQUENTLY USED ITEMS WITHIN REACH.
[2020-10-21 20:00] VITALS: BP 146/85
[2020-10-22 00:11] VITALS: BP 145/83
[2020-10-22 04:34] VITALS: BP 166/87
[2020-10-22 04:53] LABS: ABSOLUTE BASOPHILS 0.1 thou/uL (0.0-0.2); ABSOLUTE EOSINOPHILS 0.1 thou/uL (0.0-0.7); ABSOLUTE LYMPHOCYTES 3.4 thou/uL (0.8-5.3); ABSOLUTE MONOCYTES 0.8 thou/uL (0.0-1.2); ABSOLUTE NEUTROPHILS 3.3 thou/uL (1.6-8.1); BASOPHILS 0.8 %; EOSINOPHILS 1.5 %; HEMATOCRIT 37.4 % (42.0-52.0); HEMOGLOBIN 12.2 gm/dL (14.0-18.0); LYMPHOCYTES 44.1 %; MCH 28.5 pg (26.0-34.0); MCHC 32.7 g/dL (28.0-37.0); MCV 87.2 fL (80.0-100.0); MPV 8.3 fl. (7.2-11.1); NUCLEATED RBCS 0 /100WBC; PLATELET COUNT* 291 thou/uL (150-400); POLYS 43.6 %; RBC 4.29 mil/uL (4.50-6.00); RDW-CV 15.6 % (10.5-14.5); WBC 7.6 thou/uL (4.0-11.0)
[2020-10-22 05:31] LABS: CALCIUM 8.7 mg/dL (8.5-10.1); POTASSIUM 3.2 mmol/L (3.5-5.1)
--- NOTE | 2020-10-22 06:20 | NUR ---
AWAKE FREQ TONIGHT DUE TO GI PREP. CONT HAVING LIQUID PACHECO STOOLS. NO BLEEDING NOTED. NPO SINCE MN FOR COLONOSCOPY. TELEMETRY ON SHOWING SR TO SB WITH BBB.
[2020-10-22 07:20] VITALS: BP 158/77
[2020-10-22 10:38] VITALS: BP 158/77
[2020-10-22 12:23] VITALS: BP 158/77
--- NOTE | 2020-10-22 13:54 | NUR ---
PT GIVEN DISCHARGE INFORMATION. IV REMOVED. HEART MONITOR REMOVED. FALL RISK PRECAUTIONS IN PLACE. HOURLY ROUNDING COMPLETED. PT LEFT VIA WHEELCHAIR WITH NURSING STAFF TO HOME.
--- NOTE | 2020-10-22 14:38 | NUR ---
PHYSICIAN INFORMS OF PLAN FOR THE PT TO D/C POST GI PROCEDURE WITH HH. CM SPOKE TO THE PT TO DISCUSS THIS AND PT DECLINED NEED FOR HH (NURSE ONLY). CM INFORMED PT THAT IF HE GOT HOME AND CHANGE [facility] SMIND TO CONTACT CM AND IT COULD BE ARRANGED. CM WILL REMAIN AVAILABLE TO ASSIST AND FOLLOW NEEDED.
== END 2020-10-22 13:55 | disposition home health service (06) | DRG 378 ==
LOC: M.ERS 19:31 → M.2W 21:58 → M.TBA-ER 21:58 → M.2W 23:24
PROVIDERS: Internal Medicine Gastroenterology; Nurse Practitioner Family; ADMIT Internal Medicine; ATTEND Internal Medicine
PROC: 0DBL8ZZ Excision of Transverse Colon, Via Natural or Artificial Opening Endoscopic (ICD-10-PCS; principal; 2020-10-22)
DX: K92.2 Gastrointestinal hemorrhage, unspecified (principal); D62 Acute posthemorrhagic anemia; E11.9 Type 2 diabetes mellitus without complications; I10 Essential (primary) hypertension; G47.33 Obstructive sleep apnea (adult) (pediatric); E78.5 Hyperlipidemia, unspecified; J44.9 Chronic obstructive pulmonary disease, unspecified; I65.29 Occlusion and stenosis of unspecified carotid artery; F32.9 Major depressive disorder, single episode, unspecified; I35.0 Nonrheumatic aortic (valve) stenosis; K64.8 Other hemorrhoids; E66.9 Obesity, unspecified; K64.4 Residual hemorrhoidal skin tags; K63.5 Polyp of colon; Z95.5 Presence of coronary angioplasty implant and graft; Z88.0 Allergy status to penicillin; Z88.8 Allergy status to other drugs, medicaments and biological substances; Z91.041 Radiographic dye allergy status; Z79.01 Long term (current) use of anticoagulants; Z80.0 Family history of malignant neoplasm of digestive organs; Z68.34 Body mass index [BMI] 34.0-34.9, adult